=== PATIENT | male | born 1945 | race Caucasian/White ===

== ENCOUNTER 2023-08-09 20:05 | Emergency (ER) | payer OTHER, SELFPAY ==
[2023-08-09 20:16] VITALS: BP 161/85; PULSE 102; RESP 18; TEMP 36.4; O2SAT 95; BMI 27.5
--- NOTE | 2023-08-09 20:21 | ED.GENADULT ---
HPI - General Adult General Chief complaint: Nausea/Vomiting/Diarrhea Stated complaint: vomiting diarrhea Time Seen by Provider: 08/09/23 22:53 Source: patient Mode of arrival: ambulatory Limitations: no limitations History of Present Illness ED Provider: mei SUN narrative: Patient has been having vomiting and diarrhea for last 2 days unable to eat complaining of diffuse abdominal pain apparently had left over steak 2 days ago within few hours of eating get patient started having diarrhea and vomiting vomited about 4 -5 times a day and same times has watery stool no fever no chills no blood in his stool Related Data Previous Rx's ?Medication ?Instructions ?Recorded ondansetron 4 mg disintegrating 4 mg PO Q6-8H PRN nausea and 08/10/23 tablet vomiting #7 tabs Allergies Allergy/AdvReac Type Severity Reaction Status Date / Time No Known Allergies Allergy Verified 08/09/23 20:19 [facility] Social History Social History Smoked in Last 30 Days: No Use of substances other than those prescribed or required for medical reasons: No Advance Directives: No Advance Directives Information Provided: Yes Do you have a plan to hurt others: No Plan Physical Exam ED Vital Signs: Vital Signs - 24 hr 08/09/23 20:16 08/09/23 22:37 08/10/23 00:16 Temperature 97.5 F 96.8 F 97.6 F Pulse Rate 102 H 73 61 Respiratory Rate 18 16 14 Blood Pressure 161/85 H 170/70 H 145/63 H Pulse Oximetry 95 95 95 Oxygen Delivery Method Room Air Room Air Room Air BMI result Body Mass Index 27.5 Appearance: Alert. Oriented X3. No acute distress. Eyes: No pallor or icterus ENT: Pharynx normal. Oral Mucosa moist Neck: Normal inspection. Neck supple. CVS: Normal heart rate and rhythm. Pulses normal. Respiratory: No respiratory distress. Equal air entry bilateral, no wheezing/rales/rhonchi Abdomen: Soft and nontender. Bowel sounds are present, no mass palpable, no CVA tenderness Skin: Skin warm and dry. Normal skin color. Normal skin turgor. Extremities: No lower extremity edema. No calf tenderness Neuro: Oriented X 3. No motor deficit. Course Course Course Narrative: This is a rapid medical exam performed by Burak Vazquez NP: Additional HPI, ROS, PE not included below will be deferred to primary provider. Patient is a 78-year-old male presenting to emergency department with complaint of nausea, vomiting and diarrhea for the past 2 days, epigastric pain due to vomiting. Denies fevers, chills, body aches. Denies any known sick contacts. Plan: Labs, UA Medications Administered Discontinued Medications Generic Name Dose Route Start Last Admin Trade Name Reidq PRN Reason Stop Dose Admin Dicyclomine HCl 20 mg 08/09/23 23:09 08/10/23 00:06 Dicyclomine Hcl 10 Mg Capsule PO 08/09/23 23:10 20 mg ONCE ONE Administration Sodium Chloride 1,000 mls @ 999 mls/hr 08/09/23 23:09 08/10/23 00:06 Ns IV 08/10/23 00:09 999 mls/hr .Q1H1M ONE Administration Ondansetron HCl 4 mg 08/09/23 23:09 08/10/23 00:06 Ondansetron Hcl 4 Mg/2 Ml Vial IVPUSH 08/09/23 23:10 4 mg ONCE ONE Administration Medical Decision Making Medical Decision Making [facility] Narrative: Patient has acute gastroenteritis after eating leftover meat likely infection from Clostridium perfringens noticed to have elevated creatinine patient is not aware of abnormal kidney function the past likely CHLOÉ patient received IV fluids and taking p.o. fluids in the ER advised to continue taking p.o. fluids recheck his kidney functions in 2 days Differential Diagnosis Differential Diagnoses: The differential diagnosis associated with the presentation includes Food poisoning/gastroenteritis/enteritis Admission/Observation Consideration of admission/observation: Escalation of care including admission/observation considered Lab Data [facility] Lab Attestation statement: I reviewed the patient's lab results. 08/09/23 20:29 08/09/23 20:29 Labs: Lab Results 08/09/23 Range/Units 20:29 WBC 15.2 H (4.8-10.8) X10*3/uL RBC 5.58 (4.60-5.80) X10*6/uL Hgb 12.9 L (14.0-18.0) g/dl Hct 38.9 L (42.0-52.0) % MCV 69.7 L (80.0-98.0) fL MCH 23.1 L (27.0-33.0) pg MCHC 33.2 (31.0-36.0) g/dl RDW 18.2 H (11.0-16.0) % Plt Count 209 (160-400) X10*3/uL MPV Not Reportable Immature Gran % (Auto) 0.4 (0.0-0.4) % Neut % (Auto) 86.4 H (45-73) % Lymph % (Auto) 8.5 L (20-40) % Christian % (Auto) 4.0 (2-11) % Eos % (Auto) 0.5 (0-4) % Baso % (Auto) 0.2 (0-2) % Lymph # (Auto) 1.3 (1.2-4.9) X10*3/uL Christian # (Auto) 0.6 (0.1-1.2) X10*3/uL Eos # (Auto) 0.1 (0.0-0.4) X10*3/uL Baso # (Auto) 0.0 (0.0-0.2) X10*3/uL Abs Immat Gran (auto) 0.06 H (0.00-0.03) X10*3/uL Absolute Neuts (auto) 13.2 H (2.0-8.3) x10*3/uL Absolute Nucleated RBC 0.000 (0.0-0.012) X10*3/uL Nucleated RBC % (auto) 0.0 (0.0-0.2) /100WBC Sodium 138 (135-145) mmol/L Potassium 5.0 (3.3-5.1) mmol/L Chloride 106 (96-108) mmol/L Carbon Dioxide 20 L (22-29) mmol/L Anion Gap 17 (12-20) BUN 38 H (9-16) mg/dL Creatinine 2.04 H (0.5-1.4) mg/dL Estim Creat Clear Calc 28.4 Estimated GFR 32 Random Glucose 142 H (60-115) mg/dL Calcium 10.5 H (8.4-10.2) mg/dL Magnesium 1.6 (1.6-2.6) mg/dL Total Bilirubin 1.1 H (0.0-1.0) mg/dL AST 24 (5-37) U/L ALT 21 (0-40) U/L Alkaline Phosphatase 83 (39-117) U/L Total Protein 8.8 H (6.5-8.0) g/dL Albumin 4.9 (3.5-5.0) g/dL Amylase 57 (28-100) U/L Lipase 14 (8-78) U/L Discharge Plan Discharge Clinical Impression: Food poisoning, Dehydration Patient Disposition: Home, Self-Care Instructions: Food Poisoning (ED) Additional Instructions: Drink plenty of fluids Your kidney functions showed creatinine of 2.04 Follow with your PCP to recheck your kidney functions in 3 days Prescriptions: New ondansetron 4 mg tablet,disintegrating 4 mg PO Q6-8H PRN (Reason: nausea and vomiting) Qty: 7 0RF Print Language: Telugu
[2023-08-09 20:33] LABS: MANUAL DIFF FLAG NO
[2023-08-09 20:47] LABS: Alanine Aminotransferase 21 U/L (0-40); Albumin Level 4.9 g/dL (3.5-5.0); Alkaline Phosphatase 83 U/L (39-117); Amylase 57 U/L (28-100); Anion Gap 17 (12-20); Aspartate Amino Transferase 24 U/L (5-37); Bilirubin Total 1.1 mg/dL (0.0-1.0); Blood Urea Nitrogen 38 mg/dL (9-16); Calcium 10.5 mg/dL (8.4-10.2); Carbon Dioxide 20 mmol/L (22-29); Chloride 106 mmol/L (96-108); Creatinine Clr Calc Pharmacy 28.4; Estimated Glomerular Filt Rate 32; Glucose Random 142 mg/dL (60-115); Lipase 14 U/L (8-78); Magnesium 1.6 mg/dL (1.6-2.6); Sodium 138 mmol/L (135-145); Total Protein 8.8 g/dL (6.5-8.0)
[2023-08-09 21:09] LABS: Basophils Percent Auto 0.2 % (0-2); Eosinophils Absolute Auto 0.1 X10*3/uL (0.0-0.4); Eosinophils Percent Auto 0.5 % (0-4); Hematocrit 38.9 % (42.0-52.0); Hemoglobin 12.9 g/dl (14.0-18.0); Imm Gran Abs Auto 0.06 X10*3/uL (0.00-0.03); Imm Gran Pct Auto 0.4 % (0.0-0.4); Lymphocytes Absolute Auto 1.3 X10*3/uL (1.2-4.9); Lymphocytes Percent Auto 8.5 % (20-40); Mean Corpuscular HGB Conc 33.2 g/dl (31.0-36.0); Mean Corpuscular Hemoglobin 23.1 pg (27.0-33.0); Mean Corpuscular Volume 69.7 fL (80.0-98.0); Monocytes Absolute Auto 0.6 X10*3/uL (0.1-1.2); Neutrophils Absolute Auto 13.2 x10*3/uL (2.0-8.3); Neutrophils Percent Auto 86.4 % (45-73); Platelet Count 209 X10*3/uL (160-400); Red Blood Count 5.58 X10*6/uL (4.60-5.80); Red Cell Distribution Width 18.2 % (11.0-16.0); White Blood Count 15.2 X10*3/uL (4.8-10.8)
[2023-08-09 22:37] VITALS: BP 170/70; PULSE 73; RESP 16; TEMP 36; O2SAT 95
[2023-08-10] MEDS: Dicyclomine HCl 10 MG CAPSULE 20 MG PO (00:06)
[2023-08-10] MEDS: ondansetron HCL 4 MG/2 ML VIAL IVPUSH (00:06)
[2023-08-10] MEDS: 0.9 % Sodium Chloride 1,000 ML 999 ML IV (00:06)
[2023-08-10 00:16] VITALS: BP 145/63; PULSE 61; RESP 14; TEMP 36.4; O2SAT 95
--- NOTE | 2023-08-10 00:50 | PC.NURSE ---
pt from home, a&ox4, respirations even and unlabored. pt reports eating a pot roast x3 days ago and reports increasing nausea, vomiting and diarrhea. pt denies chest pain and sob. 20G placed in right ac, pt medicated per mar, fluid bolus adminstered.
[2023-08-10 01:28] VITALS: BP 145/63; PULSE 61; RESP 14; TEMP 36.4; O2SAT 95
== END 2023-08-10 01:48 | disposition home or self-care (01) ==
PROVIDERS: Registered Nurse Emergency; Emergency Provider Internal Medicine
DX: A05.9 Bacterial foodborne intoxication, unspecified (principal); E86.0 Dehydration; R19.7 Diarrhea, unspecified; R11.2 Nausea with vomiting, unspecified; R10.13 Epigastric pain
CPT/HCPCS: 36415; 80053; 82150; 83690; 83735; 85025; 96374; 99284; J2405

== ENCOUNTER 2024-05-12 12:48 | Emergency (ER) | payer OTHER, SELFPAY ==
--- NOTE | 2024-05-12 13:01 | ED.URI ---
HPI - URI/Sore Throat General Chief Complaint: Upper Respiratory Symptoms Stated Complaint: sore throat Time Seen by Provider: 05/12/24 13:52 Source: patient, RN notes reviewed and old records reviewed Mode of arrival: ambulatory History of Present Illness ED Provider: Mesha Li PA-C HPI Narrative: 79 yo M w/no sig pmhx presenting to the ED c/o sore/scratchy throat x last night. Admits to dry cough. denies fever, rhinorrhea, GUERRERO, difficulty/inability to swallow. sick contacts/travel Related Data Previous Rx's ?Medication ?Instructions ?Recorded ondansetron 4 mg disintegrating 4 mg PO Q6-8H PRN nausea and 08/10/23 tablet vomiting #7 tabs Allergies Allergy/AdvReac Type Severity Reaction Status Date / Time No Known Allergies Allergy Verified 05/12/24 13:05 Review of Systems Review of Systems: Yes all other systems are reviewed and are negative Constitutional: Constitutional: Reports as per [facility] Past Medical History Attestation statement: The following information was validated with the patient. Source: old records reviewed Social History Social History Advance Directives: No Advance Directives Information Provided: Yes Do you have a plan to hurt others: No Plan Physical Exam Vital Signs: Vital Signs: Last Vital Signs Temp 98 F 05/12/24 14:49 Pulse 72 05/12/24 14:49 Resp 18 05/12/24 14:49 BP 161/63 H 05/12/24 14:49 Pulse Ox 97 05/12/24 14:49 O2 Del Method Room Air 05/12/24 14:49 BMI result Body Mass Index 28.6 Const: General: cooperative, healthy appearing and no acute distress Orientation/consciousness: patient oriented x3 Limitations: no limitations HEENT: Head: Yes normal to inspection and Yes atraumatic Ears: hearing grossly normal bilaterally and external ears normal General nose exam: Normal external nose present Face and sinus: Yes normal facial exam Mouth: no drooling Throat: Yes tonsils normal, Yes uvula midline, No peritonsillar mass, Yes posterior oropharynx abnormal (erythema. no exudates), No uvula laterally displaced and No uvular edema Eyes: General: appearance normal, both eyes and all related structures EOM: EOMs intact bilaterally Neck: Neck: Yes normal visual inspection and Yes no meningeal signs Resp: Effort & Inspection: normal respiratory effort and no respiratory distress Auscultation: clear to auscultation bilaterally, no crackles, no rales, no rhonchi and no wheezes Cardio: Rate: regular rate Heart sounds: S1 normal heart sound present and S2 normal heart sound present Skin: Rashes: no rashes Wounds: no wounds Neuro: General: patient oriented x3, tone normal and no meningeal signs Cranial nerves: Yes CN's II-XII intact bilaterally Gait exam (Neuro): Normal gait present Extrem: General: Yes normal to inspection Course Course Course Narrative: This is a Rapid Medical Exam performed in triage by Mesha Li PA-C. Full HPI, ROS and PE to be performed by primary ED provider. 79 yo M presenting to the ED c/o sore/scratchy throat x last night. Admits to dry cough. denies fever, rhinorrhea, GUERRERO. denies sick contacts/travel PE: talking in complete sentences, nontoxic appearing, lungs CT,. posterior oropharyngeal erythema, no exudates, uvula midline Plan: SARs, Rapid strep 1408-- RSV positive. Rapid strep negative Results discussed with patient including worrisome signs and symptoms and strict return precautions, and when to return to the emergency department. They verbalized understanding and feel safe for discharge at this time. Medical Decision Making Medical Decision Making MDM Narrative: 79 yo M w/no sig pmhx presenting to the ED c/o sore/scratchy throat x last night. Admits to dry cough. on exam vital signs stable, NAD, nontoxic appearing, physical exam as noted above. Concern for viral illness vs pharyngitis. Rule out strep. No evidence of [employer] IN[employer]ATOR /retropharyngeal abscess. lower suspicion for pneumonia Plan: Viral testing, rapid strep Please refer to course for remaining clinical decision making, interpretation of labs/imaging results, and discussions with consultants and/or family members. Differential Diagnosis Differential Diagnoses: The differential diagnosis associated with the presentation includes As above Lab Data [facility] Lab Attestation statement: I reviewed the patient's lab results. Labs: Lab Results 05/12/24 Range/Units 13:15 Influenza Type A (PCR) NEGATIVE (Negative) Influenza Type B (PCR) NEGATIVE (Negative) RSV RNA Qual (PCR) POSITIVE A (Negative) SARS-CoV-2 RNA (RT-PCR) NEGATIVE (Negative) S. pyogenes GrpA MANNY Negative (Negative) External Record Review External record reviewed: Inpatient record, Office record, Outpatient record, Prior outpatient labs, Prior outpatient radiology, Primary care record and Outside ED record Tests considered The following testing was considered but not selected: As above Prescription Management I considered prescription management with: Pain Medication, Antiviral and Antibiotic Chronic Conditions Patient?s care impacted by: Other Social Determinants Patient?s care significantly limited by Social Determinants of Health including: Other Social Determinant of Health Discharge Plan Discharge Clinical Impression: Respiratory syncytial virus (RSV) Patient Disposition: Home, Self-Care Instructions: Respiratory Syncytial Virus (ED) Additional Instructions: You have RSV, this is a common virus No antibiotics are indicated at this time Make sure you are staying hydrated. Drink plenty of fluids. Rest Alternate Tylenol and Motrin at home as needed for body aches and fever Follow-up with your doctor. If symptoms persist or worsen return to the emergency department *If you are a child & not tolerating liquid or urinating for more than 6 hours, or fevers are uncontrolled with medications at home, return to the emergency department* Prescriptions: No Action ondansetron 4 mg tablet,disintegrating 4 mg PO Q6-8H PRN (Reason: nausea and vomiting) Qty: 7 0RF Referrals: Physician,Unknown J [Primary Care Provider] - 1 week Interventions: ED Discharge Assessment Last Done: 05/12/24 14:49 Discharge Date/Time: 05/12/24 14:50 Print Language: Danish
[2024-05-12 13:03] VITALS: BP 164/62; PULSE 70; RESP 18; TEMP 36.8; O2SAT 96; BMI 28.6
[2024-05-12 13:36] LABS: IDNOW Serial# 55D5AD1C; Strep A Nucleic Acid Negative (Negative)
[2024-05-12 14:03] LABS: Influenza A PCR NEGATIVE (Negative); Influenza B PCR NEGATIVE (Negative); Resp Syncy Virus RNA Qual PCR POSITIVE (Negative); SARS COV2 PCR INHOUSE NEGATIVE (Negative)
--- OUTSIDE RECORDS SUMMARY | 2024-05-12 14:15 | XMS_ITS | Encounter Summary ---
Author Name [facility] [place] [facility] Address [address] [place] [address] Care Team Providers Care Indirect Sales Exec Name Role Phone YOSEPH HERNANDEZ Primary Care Provide IGGY Faith Primary Care Provider Unavail able Insurance Providers: All historical and current Section Date Range: From patient's date of to the date document was created. This section includes the names of all active insurance providers for the patient. Insurance Provider Type of Coverage Plan Name Start of Policy Coverage End of Policy Coverage Group Number Member ID Insurance Provider's Telephone Number Policy Kieta's Name Patient's Relationship to Policy Keita MEDICARE (WNR) MEDICARE (M) PART A Mar 10, 2009 PART A [id number] GIANLORETTA SEPH PATIENT MEDICARE (WNR) MEDICARE (M) PART A Mar 10, 2009 PART A [id number] GIANLORETTA SEPH PATIENT MEDICARE (WNR) MEDICARE (M) PART A Mar 10, 2009 PART A [id number] GIANLORETTA SEPH PATIENT MEDICARE (WNR) MEDICARE (M) PART A Mar 10, 2009 PART A [id number] [phone] GIANLORETTA SEPH PATIENT MEDICARE (WNR) MEDICARE (M) PART A Mar 10, 2009 PART A [id number] LORETTA SPRINGER PATIENT MEDICARE (WNR) MEDICARE (M) PART A Mar 10, 2009 PART A [id number] LORETTA SPRINGER PATIENT Selected Encounter This section includes the information on record at [place] for the Encounter. Date/Time Encounter Type Encounter Description Reason Pro vider Source Aug 15, 2023 11:30 AM Outpatient Encounter PRIMARY CARE/MEDICINE [facility] Encounter Template Text not used by [place] Plan of Treatment: Future Appointments (+ 6 months) and Future Tests (+/- 45 days) The Plan of Treatment section includes future care activities for the patient from all [place] treatmentfacilities. This section includes future appointments and future orders which are active, pending or scheduled. Future Appointments This section includes appointments that were scheduled to occur 6 months from the date of the Encounter, up to a maximum of 20 appointments. The data comes from all [facility]. Appointment Date/Time Appointment Type Appointme nt Facility Name Aug 26, 2023 09:30 AM [facility] Oct 26, 2023 09:30 AM AMBULATORY - NONE [facility] Jan 23, 2024 10:30 AM [facility] Feb 07, 2024 01:45 PM AMBULATORY - NONE [facility] Active, Pending, and Scheduled Orders This section includes a listing of several types of active, pending, and scheduled orders, including clinic medications orders, diagnostic test orders, procedure orders and consult orders; where the start date of the order is 45 days before the date of the Encounter or 45 days after the date of theEncounter. The data comes from all [facility]. Test Date/Time Test Type Test Details Facility Name Sep 06, 2023 12:00 AM Laboratory - Chemi stry Order CBC BLOOD (LAVENDER-BLOOD) [facility] Sep 06, 2023 12:00 AM Laboratory - Chemi stry Order BASIC METABOLIC PANEL BLOOD (LIGHT-GREEN PST) PLASMA [facility] Sep 06, 2023 12:00 AM Laboratory - Chemi stry Order DIFF COUNT (BLOOD) BLOOD (LAVENDER-BLOOD) [facility] Sep 06, 2023 12:00 AM Laboratory - Chemi stry Order HEPATIC FUNCTION PANEL BLOOD (LIGHT-GREEN PST) PLASMA [facility] Sep 06, 2023 12:00 AM Laboratory - Chemi stry Order LIPID PROFILE BLOOD (LIGHT-GREEN PST) PLASMA [facility] Sep 06, 2023 12:00 AM Laboratory - Chemi stry Order THYROID PROFILE BLOOD (LIGHT-GREEN PST) PLASMA [facility] Sep 06, 2023 12:00 AM Laboratory - Chemi stry Order PSA, FREE & TOT BLOOD (GOLD-SST) SERUM [facility] Sep 06, 2023 12:00 AM Laboratory - Chemi stry Order OCCULT BLOOD FITX1 SCREEN FOBT Sampling Bottle [facility] Sep 06, 2023 12:00 AM Laboratory - Chemi stry Order HEMOGLOBIN A1C BLOOD (LAVENDER-BLOOD) [facility] Sep 06, 2023 12:00 AM Laboratory - Chemi stry Order URINALYSIS URINE (RANDOM) [facility] Sep 06, 2023 12:00 AM Laboratory - Chemi stry Order MICROALBUMIN/CREATININ E PANEL URINE (RANDOM) [facility] Sep 06, 2023 12:00 AM Laboratory - Chemi stry Order FOLATE SERUM/PLASMA BLOOD (LIGHT-GREEN PST) PLASMA [facility] Sep 06, 2023 12:00 AM Laboratory - Chemi stry Order Vitamin B-12 BLOOD (LIGHT-GREEN PST) PLASMA [facility] Sep 06, 2023 12:00 AM Laboratory - Chemi stry Order VITAMIN D, 25-OH, TOTAL BLOOD (GOLD-SST) SERUM [facility] Lab Results: +/- 30 days of the encounter This section includes the Chemistry and Hematology Lab Results on record with [place] for the patient. Radiology Reports and Pathology Reports are provided separately, in subsequent sections. Lab Results This section contains the Chemistry/Hematology Results that were resulted 30 days before or 30 daysafter the date of the Encounter. Date/Time Source Result Type Result - Unit Interpretation Reference Range Comment Aug 26, 2023 10:08 AM [facility] MICROALBUMIN CREATININE RATIO PANEL [facility] Type: URINE No comment entered. Ordering Provider: YOSEPH POWERS Report Released Date/Time: Aug 26, 2023 10:05 AM Reporting Lab: [place] [facility] [address] [id number] Performing Lab: [address] [id number] MICROALBUMIN/C REATININE RATIO 39.0 mg/g H 0-29.9 MICROALBUMIN,Q UANTITATIVE 1.6 mg/dL RR UNAVAIL CREATININE URINE 41.04 mg/dL Aug 26, 2023 10:08 AM [facility] URINALYSIS Specimen Type: URINE Comment: If Glucose = >500 and Ketones are positive, please alert the Physician. Ordering Provider: YOSEPH POWERS Report Released Date/Time: Aug 26, 2023 10:05 AM Reporting Lab: [address] [id number] Performing Lab: [address] [address] UA COLOR Light-Yellow Yellow UA APPEARANCE Clear Clear UA GLUCOSE NEGATIVE mg/dL Negative UA KETONES NEGATIVE mg/dL Negative UA BLOOD NEGATIVE mg/dL Negative UA PROTEIN NEGATIVE mg/dL Negative UA NITRITE NEGATIVE mg/dL Negative UA BILIRUBIN NEGATIVE mg/dL Negative UA SPECIFIC GRAVITY 1.009 L 1.016-1.022 UA pH 6.0 5.0-9.0 UA UROBILINOGEN <2.0 mg/dL <2.0 UA LEUKOCYTE NEGATIVE Negative Encounter Notes: All associated encounter notes This section contains the clinical notes associated to the Encounter. Date/Time Encounter Note(s) Provider Source Aug 15, 2023 01:50 PM ADMINISTRATIVE NOT E: LOCAL TITLE: ADMINISTRATIVE NOTE STANDARD TITLE: ADMINISTRATIVE NOTE DATE OF NOTE: AUG 15, 2023@13:50 ENTRY DATE: AUG 15, 2023@13:50:10 AUTHOR: BREANNA MOSS EXP COSIGNER: URGENCY: STATUS: COMPLETED ADMINISTRATIVE NOTE Has ADDENDA [place] did not show up for nursing visit as sheduled. /zana/ BREANNA MOSS RN REGISTERED NURSE Signed: 08/15/2023 13:50 Receipt Acknowledged By: 08/15/2023 14:09 /yaneth LOVE 08/15/2023 ADDENDUM STATUS: COMPLETED entry writer sent a no show letter to . /yaneth LOVE Signed: 08/15/2023 14:08 BREANNA MOSSFIELD
--- OUTSIDE RECORDS SUMMARY | 2024-05-12 14:16 | XMS_ITS | Continuity of Care Document ---
Author Name [facility] Organization [facility] Care Team Providers Care Estate And Trust Tax Principal Name Role Phone [facility] Unavailable Unavailable Problems Combined list of problems from Department of Defense and Veterans Affairs facilities. It does not include entries that were removed or entered in error. Problem Status Onset Date Problem Type Date of Resolution Comments Source COVID-19 Active 10/07/19 22 Condition [facility] Actinic keratosis Active Condition [facility] Benign essential hypertension (SNOMED CT 3485157) Active Condition [facility] Chronic kidney disease stage 3 Active Condition [facility] Chronic Kidney Disease Stage 3A (SCT 332794779) Active Condition [facility] Chronic post-traumatic stress disorder Active Condition [facility] Erectile dysfunction Active Condition [facility] Exposure to Potentially Hazardous Substance (SCT 436183389206543) Active Condition [facility] Gastroesophageal reflux disease Active Condition [facility] GERD - Gastro-Esophageal Reflux Disease (SCT 769631180) Active Condition [place] Headache (SCT 79379068) Active Condition [facility] Herpes labialis Active Condition [facility] Hypertension Active Condition [facility] Lateral Epicondylitis (Tennis Elbow) (ICD-9-CM 726.32) [place] Low back pain Active Condition [facility] Low Back Pain (SCT 432820280) Active Condition [facility] Migraine Active Condition [facility] PTSD - Post-Traumatic Stress Disorder (SCT 14244021) Active Condition [facility] Renal mass Active Condition [facility] Thalassemia (SNOMED CT 04554348) Active Condition Oct 12, 2013 Entered By: MARLEN CHAVEZ Comment: colonoscopy reportedly normal 2007 [facility] Tinnitus Active Condition [facility] Erectile Dysfunction (SCT 856470117) Inactive Condition 06/02/2020 [facility] Low Back Pain * (ICD-9-CM 724.2) Inactive Condition 06/15/2017 [facility] Male erectile disorder Inactive Condition 06/15/2017 [facility] Migraine, unspecified, without mention of Intractable Migraine without mention o Inactive Condition 06/15/2017 [facility] Posttraumatic Stress Disorder Inactive Condition 06/15/2017 [facility] Vertigo Inactive Condition 01/19/2019 Sep 05, 2 014 Entered By: MARLEN CHAVEZ Comment: CT brain 09/20 chronic infarcts/micr ovascular changes [facility] Diagnosis: ICD-10-CM I10 Essential (primary) hypertension Active Diagnosis [place] Diagnosis: ICD-10-CM L57.0 Actinic keratosis Active Diagnosis [facility] Diagnosis: ICD-10-CM K03.6 Deposits [accretions] on teeth Active Diagnosis [facility] Diagnosis: ICD-10-CM B00.1 Herpesviral vesicular dermatitis Active Diagnosis [place] Diagnosis: ICD-10-CM Z23 Encounter for immunization Active Diagnosis [facility] Medications Combined list of outpatient medications from Department of Defense and Veterans Affairs facilities.Medications provided include 1) outpatient medications from the last 15 months, and 2) patient-reported medications. Medication Details Route Status Patient Instructions Prescription Expires Prescription Number Last Dispense Date Ordering Provider Order Date Order Qty Source ACETAMINOPH EN 325MG TAB TAKE TWO TABLETS BY MOUTH EVERY 6 HOURS NEEDED FOR PAIN ORAL ACTIVE 09/27/2024 [id number] YOSEHP GOMEZ 2023 200 [facility] IELD ACETAMINOPH EN 325MG TAB TAKE TWO TABLETS BY MOUTH 4 TIMES A DAY FOR BACKACHE ORAL DISCONT INUED 03/22/2024 [id number] IGGY KRAMER 2023 200 [facility] AMLODIPINE BESYLATE 2.5MG TAB TAKE THREE TABLETS BY MOUTH ONCE DAILY FOR BLOOD PRESSURE /HEART, DO NOT TAKE WITH GRAPEFRU IT JUICE ORAL ACTIVE 01/23/2025 [id number] 5 YOSEPH GOMEZ 2023 270 [place] AMLODIPINE BESYLATE 5MG TAB TAKE ONE TABLET BY MOUTH ONCE DAILY FOR BLOOD PRESSURE /HEART, DO NOT TAKE WITH GRAPEFRU IT JUICE ORAL DISCONT INUED (EDIT) 07/11/2024 [id number] 4 YOSEPH GOMEZ 2023 90 [facility] IELD AMLODIPINE BESYLATE 5MG TAB TAKE ONE TABLET BY MOUTH DAILY FOR BLOOD PRESSURE ORAL 03/22/2024 [id number] IGGY KRAMER 2023 90 [facility] LIDOCAINE 5% OINT,TOP APPLY SMALL AMOUNT EXTERNAL LY TWICE A DAY (ANESTHE TIC) TOPICA L 03/22/2024 [id number] 4 IGGY KRAMER 2023 35 [facility] [place] POTASSIUM 100MG TAB TAKE ONE TABLET BY MOUTH DAILY FOR BLOOD PRESSURE /HEART (REPLACE S VALSARTA N) ORAL 03/22/2024 [id number] 4 GIGY KRAMER 2023 90 [facility] MECLIZINE HCL 25MG TAB,CHEWABL E CHEW ONE TABLET BY MOUTH THREE TIMES PER DAY NEEDED FOR DIZZINES S ORAL 03/22/2024 [id number] 4 IGGY KRAMER [address] [place] [address] MULTIVITAMI NS W/MINERALS CAP/TAB TAKE ONE CAP/TAB BY MOUTH ONCE DAILY ORAL ACTIVE YOSEPH GOMEZ 2023 [facility] IELD NO KNOWN NON-VA MEDS MISCELLANEO US ACTIVE WAGNER CHAVEZ 2017 [facility] NO KNOWN NON-VA MEDS MISCELLANEO US ACTIVE WAGNER CHAVEZ 2015 [facility] NO KNOWN NON-VA MEDS MISCELLANEO US ACTIVE WAGNER CHAVEZ 2019 [facility] NO KNOWN NON-VA MEDS MISCELLANEO US ACTIVE IGGY KRAMER 2023 [facility] NO KNOWN NON-VA MEDS MISCELLANEO US ACTIVE WAGNER CHAVEZ 2020 [facility] OMEPRAZOLE 20MG CAP,EC TAKE ONE CAPSULE BY MOUTH EVERY MORNING 30 MINUTES BEFORE BREAKFAS T FOR GASTROES OPHAGEAL REFLUX DISEASE ORAL ACTIVE 07/11/2024 [id number] YOSEPH GOMEZ M 2023 90 [place] OMEPRAZOLE 20MG CAP,EC TAKE ONE CAPSULE BY MOUTH EVERY MORNING BEFORE EATING FOR STOMACH ACID ORAL 03/22/2024 [id number] 4 IGGY KRAMER 2023 90 [facility] POTASSIUM CHLORIDE 10MEQ TAB,SA TAKE ONE TABLET BY MOUTH THREE TIMES A WEEK FOR LOW POTASSIU M ORAL ACTIVE 01/23/2025 [id number] 4 YOSEPH GOMEZ M 2023 39 [place] POTASSIUM CHLORIDE 10MEQ TAB,SA TAKE ONE TABLET BY MOUTH ONCE DAILY FOR LOW POTASSIU M ORAL DISCONT INUED BY PROVIDE R 12/26/2023 [id number] YOSEPH GOMEZ M 2023 90 [place] POTASSIUM CHLORIDE 10MEQ TAB,SA TAKE ONE TABLET BY MOUTH DAILY WITH FULL GLASS OF WATER FOR LOW POTASSIU M ORAL DISCONT INUED 03/22/2024 [id number] 4 IGGY KRAMER 2023 90 [facility] VALACYCLOVI R HCL 1GM TAB TAKE TWO TABLETS BY MOUTH TWICE DAILY FOR INFECTIO N CAUSED BY A VIRUS ORAL ACTIVE 07/11/2024 [id number] 4 YOSEPH GOMEZ M 2023 4 [place] VALSARTAN 160MG TAB TAKE ONE TABLET BY MOUTH ONCE DAILY FOR HIGH BLOOD PRESSURE ORAL ACTIVE 01/08/2025 [id number] 5 YOSEPH GOMEZ M 2023 90 [place] VALSARTAN 160MG TAB TAKE ONE TABLET BY MOUTH ONCE DAILY FOR HIGH BLOOD PRESSURE ORAL DISCONT INUED 12/22/2023 [id number] JUNEMARYY P 2023 90 [facility] IELD VALSARTAN 160MG TAB TAKE ONE TABLET BY MOUTH ONCE DAILY FOR HIGH BLOOD PRESSURE ORAL DISCONT INUED 10/09/2023 [id number] YOSEPH GOMEZ 2023 90 [facility] IELD Allergies, Adverse Reactions, Alerts Combined list of allergies from Department of Defense and Veterans Affairs facilities. It does not include entries that were removed or entered in error. Substance Category Reaction Severity Reaction type Status Date Reported Comments Source FLUZONE Propensity to adverse reactions to drug (finding) Muscle pain active 01/12/2018 [facility] Immunizations Combined list of available immunizations from the Department of Defense and Veterans Affairs facilities. Immunization Series Date Given Administered By Site Reaction Lot Number CVX Code Drug General Accounting Manager Status Comments Source COVID-19 (MODERNA), MRNA, LNP-S, PF, 50 MCG/0.5 ML (AGES 12+ YEARS) 1 2023 THIAGO MATHIS RIGHT DELTO ID [id number] 312 complet ed [facility] ZOSTER RECOMBINANT 2 2022 IVAN ANDERSON RA LEFT DELTO ID [id number] 187 complet ed [facility] COVID-19 (MODERNA), MRNA, LNP-S, PF, 100 MCG/0.5ML DOSE OR 50 MCG/0.25ML DOSE 4 2021 207 complet ed MOD; [id number]; 2 [facility] ZOSTER RECOMBINANT 1 2021 187 complet ed [facility] COVID-19 (MODERNA), MRNA, LNP-S, PF, 100 MCG OR 50 MCG DOSE 3 2020 207 complet ed MOD; [id number]; 2 [facility] COVID-19 (MODERNA), MRNA, LNP-S, PF, 100 MCG/0.5 ML DOSE 2 2020 207 complet ed MOD; [id number]; 1 [facility] COVID-19 (MODERNA), MRNA, LNP-S, PF, 100 MCG/0.5 ML DOSE 1 2020 207 complet ed MOD; [id number]; 1 [facility] PNEUMOCOCCAL POLYSACCHARID E PPV23 2015 33 complet ed [facility] PNEUMOCOCCAL CONJUGATE PCV 13 2014 133 complet ed [facility] TD(ADULT) UNSPECIFIED FORMULATION 2014 139 complet ed [facility] FLU,3 YRS (HISTORICAL) 2010 88 complet ed Site: Left Deltoid [place] PNEUMOCOCCAL, UNSPECIFIED FORMULATION 2010 109 complet ed [place] Results Combined list of recent chemistry, hematology and other laboratory results from Department of Defense and Veterans Affairs, ranging from 15 months to all on record, depending upon the facility. Order Name Results Value Reference Range Date Interpretation Specimen Comments Source IRON & TIBC PANEL IRON BINDING CAPACITY [MASS/VOLU ME] IN SERUM OR PLASMA 293 ug/dL 204 - 475 01/22 Specimen Type: SERUM No comment entered. Ordering Provider: JEAN PAUL MITCHELL Report Released Date/Time: Jan 23, 2024 11:23 AM Reporting Lab: [facility] [facility] [address] [facility] [address] Performing Lab: [facility] [place] [facility] [address] [facility] [address] [place] IRON & TIBC PANEL IRON [MASS/VOLU ME] IN SERUM OR PLASMA 100 ug/dL 40 - 160 01/22 Specimen Type: SERUM No comment entered. Ordering Provider: JEAN PAUL MITCHELL Report Released Date/Time: Jan 23, 2024 11:23 AM Reporting Lab: [facility] [place] [facility] [address] [facility] [address] Performing Lab: [facility] [address] [facility] [address] [place] IRON & TIBC PANEL IRON/IRON BINDING CAPACITY.T OTAL [MASS RATIO] IN SERUM OR PLASMA 34.1 20.0 - 50.0 01/22 Specimen Type: SERUM No comment entered. Ordering Provider: JEAN PAUL MITCHELL Report Released Date/Time: Jan 23, 2024 11:23 AM Reporting Lab: [facility]TRN [facility] [address] [facility] [address] Performing Lab: [facility]ITALUSE[facility] [address] [facility] [address] [place] IRON & TIBC PANEL TRANSFERRI N [MASS/VOLU ME] IN SERUM OR PLASMA 222 mg/dL 200 - 360 01/22 Specimen Type: SERUM No comment entered. Ordering Provider: JEAN PAUL MITCHELL Report Released Date/Time: Jan 23, 2024 11:23 AM Reporting Lab: [facility] [address] [facility] [address] Performing Lab: [facility] [address] [address] [place] FERRITIN FERRITIN [MASS/VOLU ME] IN SERUM OR PLASMA 391 ng/mL 20 - 300 01/22 H Specimen Type: SERUM No comment entered. Ordering Provider: JEAN PAUL MITCHELL Report Released Date/Time: Jan 23, 2024 11:23 AM Reporting Lab: [facility] [address] [facility] [address] Performing Lab: [facility] [address] [address] [place] BASIC METABOLI C PANEL (non-fas ting) UREA NITROGEN [MASS/VOLU ME] IN SERUM OR PLASMA 30 mg/dL 7 - 25 01/18 H Specimen Type: SERUM No comment entered. Ordering Provider: JEAN PAUL MITCHELL Report Released Date/Time: Jan 18, 2024 03:04 PM Reporting Lab: [facility]ITAL[facility] INFIRMARYN [facility]ITALUSEP[facility] [address] [facility] [address] Performing Lab: [facility] [address] [address] [place] BASIC METABOLI C PANEL (non-fas ting) GLUCOSE [MASS/VOLU ME] IN SERUM OR PLASMA 87 mg/dL 65 - 100 01/18 Specimen Type: SERUM No comment entered. Ordering Provider: JEAN PAUL MITCHELL Report Released Date/Time: Jan 18, 2024 03:04 PM Reporting Lab: [facility] [place] [facility] [address] [facility] [address] Performing Lab: [facility]ITALUSETS [facility] [address] [facility] [address] [place] BASIC METABOLI C PANEL (non-fas ting) SODIUM [MOLES/VOL UME] IN SERUM OR PLASMA 139 mmol/L 135 - 145 01/18 Specimen Type: SERUM No comment entered. Ordering Provider: JEAN PAUL MITCHELL Report Released Date/Time: Jan 18, 2024 03:04 PM Reporting Lab: [facility]OSPITALUSETS [address] [address] Performing Lab: [facility]ITALUSETS [address] [address] [place] BASIC METABOLI C PANEL (non-fas ting) POTASSIUM [MOLES/VOL UME] IN SERUM OR PLASMA 4.3 mmol/L 3.5 - 5.0 01/18 Specimen Type: SERUM No comment entered. Ordering Provider: JEAN PAUL MITCHELL Report Released Date/Time: Jan 18, 2024 03:04 PM Reporting Lab: [facility]ITALUSETS [address] [address] Performing Lab: [facility]ITALUSETS [address] [address] [place] BASIC METABOLI C PANEL (non-fas ting) CHLORIDE [MOLES/VOL UME] IN SERUM OR PLASMA 109 mmol/L 100 - 110 01/18 Specimen Type: SERUM No comment entered. Ordering Provider: JEAN PAUL MITCHELL Report Released Date/Time: Jan 18, 2024 03:04 PM Reporting Lab: [facility]ITALUSETS [address] [address] Performing Lab: [facility]ITALUSETS [address] [address] [place] BASIC METABOLI C PANEL (non-fas ting) CARBON DIOXIDE, TOTAL [MOLES/VOL UME] IN SERUM OR PLASMA 24 meq/L 20 - 30 01/18 Specimen Type: SERUM No comment entered. Ordering Provider: JEAN PAUL MITCHELL Report Released Date/Time: Jan 18, 2024 03:04 PM Reporting Lab: [address] [address] Performing Lab: [address] [address] [place] BASIC METABOLI C PANEL (non-fas ting) CREATININE [MASS/VOLU ME] IN SERUM OR PLASMA 1.21 mg/dL 0.50 - 1.40 01/18 Specimen Type: SERUM No comment entered. Ordering Provider: JEAN PAUL MITCHELL Report Released Date/Time: Jan 18, 2024 03:04 PM Reporting Lab: [address] [address] Performing Lab: [address] [address] [place] BASIC METABOLI C PANEL (non-fas ting) GLOMERULAR FILTRATION RATE/1.73 SQ M.PREDICTE D [VOLUME RATE/AREA] IN SERUM, PLASMA OR BLOOD BY CREATININE -BASED FORMULA (CKD-EPI 2020) 61 mL/min 60 01/18 Specimen Type: SERUM No comment entered. Ordering Provider: JEAN PAUL MITCHELL Report Released Date/Time: Jan 18, 2024 03:04 PM Reporting Lab: [address] [address] Performing Lab: [address] [address] [place] LIVER FUNCTION PROTEIN [MASS/VOLU ME] IN SERUM OR PLASMA 7.1 g/dL 6.0 - 8.3 01/18 Specimen Type: SERUM No comment entered. Ordering Provider: JEAN PAUL MITCHELL Report Released Date/Time: Jan 18, 2024 03:04 PM Reporting Lab: [facility]ITALRE[facility]ENTERTRN [address] [address] Performing Lab: [facility]PITALRHALE INFIRMARYN [address] [address] [place] LIVER FUNCTION ALBUMIN [MASS/VOLU ME] IN SERUM OR PLASMA 3.9 g/dL 3.5 - 5.0 01/18 Specimen Type: SERUM No comment entered. Ordering Provider: JEAN PAUL MITCHELL Report Released Date/Time: Jan 18, 2024 03:04 PM Reporting Lab: [facility]ITAL[facility] INFIRMARYN [address] [address] Performing Lab: [facility] [address] [address] [facility]IVER FUNCTION ALKALINE PHOSPHATAS E [ENZYMATIC ACTIVITY/V OLUME] IN SERUM OR PLASMA 74 U/L 40 - 150 01/18 Specimen Type: SERUM No comment entered. Ordering Provider: JEAN PAUL MITCHELL Report Released Date/Time: Jan 18, 2024 03:04 PM Reporting Lab: [facility]ITAL[facility] INFIRMARYN [address] [address] Performing Lab: [facility]ITAL[facility] INFIRMARYN [address] [address] [facility] LIVER FUNCTION ASPARTATE AMINOTRANS FERASE [ENZYMATIC ACTIVITY/V OLUME] IN SERUM OR PLASMA 21 U/L 5 - 34 01/18 Specimen Type: SERUM No comment entered. Ordering Provider: JEAN PAUL MITCHELL Report Released Date/Time: Jan 18, 2024 03:04 PM Reporting Lab: [facility]ITALRE[facility] CENTERTRN [address] [address] Performing Lab: [facility]ITAL[facility] INFIRMARYN [address] [address] [facility] LIVER FUNCTION ALANINE AMINOTRANS FERASE [ENZYMATIC ACTIVITY/V OLUME] IN SERUM OR PLASMA 13 U/L 01/18 Specimen Type: SERUM No comment entered. Ordering Provider: JEAN PAUL MITCHELL Report Released Date/Time: Jan 18, 2024 03:04 PM Reporting Lab: [address] [address] Performing Lab: [address] [address] [place] LIVER FUNCTION BILIRUBIN. TOTAL [MASS/VOLU ME] IN SERUM OR PLASMA 0.7 mg/dL 0.2 - 1.2 01/18 Specimen Type: SERUM No comment entered. Ordering Provider: JEAN PAUL MITCHELL Report Released Date/Time: Jan 18, 2024 03:04 PM Reporting Lab: [address] [address] Performing Lab: [address] [address] [place] HEMOGLOB IN A1C PANEL HEMOGLOBIN A1C/HEMOGL OBIN.TOTAL IN BLOOD BY HPLC 5.0 4.0 - 5.6 01/18 Specimen Type: BLOOD Comment: Values obtained from A1C measurement s can vary. For atypical A1C assays, a reported value of 7.0 could actually be between 6.72 and 7.28 if measured by a reference method. A reported value of 9.0 could actually be between 8.73 and 9.27. Ref: http://www. ngsp.org/[place] Pdata.asp Ordering Provider: JEAN PAUL MITCHELL Report Released Date/Time: Jan 18, 2024 03:04 PM Reporting Lab: [address] [address] Performing Lab: [address] [address] [place] TSH THYROTROPI N [UNITS/VOL UME] IN SERUM OR PLASMA 2.69 u[IU]/mL 0.35 - 5.00 01/18 Specimen Type: SERUM No comment entered. Ordering Provider: JEAN PAUL MITCHELL Report Released Date/Time: Jan 18, 2024 03:04 PM Reporting Lab: [facility]ITAL[facility] [place] [facility] [address] [facility] [address] Performing Lab: [facility]OSPITALRL TRN [facility]ITALUSETS [facility] [address] [facility] [address] [place] CBC AND DIFF (AUTO) LEUKOCYTES [#/VOLUME] IN BLOOD BY AUTOMATED COUNT 5.15 10*3/uL 4.50 - 11.00 01/18 Specimen Type: BLOOD No comment entered. Ordering Provider: JEAN PAUL MITCHELL Report Released Date/Time: Jan 18, 2024 03:04 PM Reporting Lab: [facility]OSPITALRL TRN [facility]OSPITALUSE[address] [address] Performing Lab: [facility]ITALRE[facility] CENTERTRN [facility] HOSPITALUSE[address] [address] [place] CBC AND DIFF (AUTO) ERYTHROCYT ES [#/VOLUME] IN BLOOD BY AUTOMATED COUNT 4.02 10*6/uL 4.23 - 5.66 01/18 L Specimen Type: BLOOD No comment entered. Ordering Provider: JEAN PAUL MITCHELL Report Released Date/Time: Jan 18, 2024 03:04 PM Reporting Lab: [facility]OSPITALRL TRN [facility] HOSPITALUSETS [address] [address] Performing Lab: [facility]OSPITALRL TRN [facility]OSPITALUSE[address] [address] [place] CBC AND DIFF (AUTO) HEMOGLOBIN [MASS/VOLU ME] IN BLOOD 9.7 g/dL 12.8 - 17 01/18 L Specimen Type: BLOOD No comment entered. Ordering Provider: JEAN PAUL MITCHELL Report Released Date/Time: Jan 18, 2024 03:04 PM Reporting Lab: [facility]OSPITALRL TRN [facility] HOSPITALUSETS [address] [address] Performing Lab: [facility]ITALRHALE INFIRMARYN [facility]OSPITALUSE[address] [address] [place] CBC AND DIFF (AUTO) HEMATOCRIT [VOLUME FRACTION] OF BLOOD BY AUTOMATED COUNT 28.6 39.2 - 50.4 01/18 L Specimen Type: BLOOD No comment entered. Ordering Provider: JEAN PAUL MITCHELL Report Released Date/Time: Jan 18, 2024 03:04 PM Reporting Lab: [facility]ITALRL TRN [facility]ITALUSE[address] [address] Performing Lab: [facility]ITALRL TRN [facility]ITALUSE[address] [address] [place] CBC AND DIFF (AUTO) MCV [ENTITIC VOLUME] BY AUTOMATED COUNT 71.1 fL 82 - 99 01/18 L Specimen Type: BLOOD No comment entered. Ordering Provider: JEAN PAUL MITCHELL Report Released Date/Time: Jan 18, 2024 03:04 PM Reporting Lab: [facility]ITALRL TRN [address] [address] Performing Lab: [facility]ITALRH[facility] INFIRMARYN [address] [address] [place] CBC AND DIFF (AUTO) MCHC [MASS/VOLU ME] BY AUTOMATED COUNT 33.9 g/dL 30.8 - 35.1 01/18 Specimen Type: BLOOD No comment entered. Ordering Provider: JEAN PAUL MITCHELL Report Released Date/Time: Jan 18, 2024 03:04 PM Reporting Lab: [facility]ITALRL TRN [address] [address] Performing Lab: [facility]ITALRL TRN [facility]ITALUSE[address] [address] [place] CBC AND DIFF (AUTO) PLATELETS [#/VOLUME] IN BLOOD BY AUTOMATED COUNT 171 10*3/uL 140 - 360 01/18 Specimen Type: BLOOD No comment entered. Ordering Provider: JEAN PAUL MITCHELL Report Released Date/Time: Jan 18, 2024 03:04 PM Reporting Lab: [facility]ITALRL WSTRN [facility]ITALUSE[address] [address] Performing Lab: [facility]ITALRL [facility] [address] [address] [place] CBC AND DIFF (AUTO) ERYTHROCYT E DISTRIBUTI ON WIDTH [RATIO] BY AUTOMATED COUNT 16.9 12.0 - 16.0 01/18 H Specimen Type: BLOOD No comment entered. Ordering Provider: JEAN PAUL MITCHELL Report Released Date/Time: Jan 18, 2024 03:04 PM Reporting Lab: [facility]RL [facility] [place] [address] [address] Performing Lab: [place] [facility] [place] [address] [address] [place] CBC AND DIFF (AUTO) MONOCYTES [#/VOLUME] IN BLOOD BY AUTOMATED COUNT 0.53 10*3/uL 0.30 - 1.10 01/18 Specimen Type: BLOOD No comment entered. Ordering Provider: JEAN PAUL MITCHELL Report Released Date/Time: Jan 18, 2024 03:04 PM Reporting Lab: [facility] [address] Performing Lab: [facility] [place] [address] [address] [place] CBC AND DIFF (AUTO) MCH [ENTITIC MASS] BY AUTOMATED COUNT 24.1 pg 26.2 - 32.6 01/18 L Specimen Type: BLOOD No comment entered. Ordering Provider: JEAN PAUL MITCHELL Report Released Date/Time: Jan 18, 2024 03:04 PM Reporting Lab: [facility] [place] [address] [address] Performing Lab: [facility] [place] [address] [address] [place] CBC AND DIFF (AUTO) NEUTROPHIL S/100 LEUKOCYTES IN BLOOD BY AUTOMATED COUNT 61.0 43.7 - 75.8 01/18 Specimen Type: BLOOD No comment entered. Ordering Provider: JEAN PAUL MITCHELL Report Released Date/Time: Jan 18, 2024 03:04 PM Reporting Lab: [facility] [place] [address] [address] Performing Lab: [facility] [place] [address] [address] [place] CBC AND DIFF (AUTO) LYMPHOCYTE S/100 LEUKOCYTES IN BLOOD BY AUTOMATED COUNT 25.4 14.0 - 42.3 01/18 Specimen Type: BLOOD No comment entered. Ordering Provider: JEAN PAUL MITCHELL Report Released Date/Time: Jan 18, 2024 03:04 PM Reporting Lab: [facility] [place] [address] [address] Performing Lab: [facility] [place] [address] [address] [place] CBC AND DIFF (AUTO) MONOCYTES/ 100 LEUKOCYTES IN BLOOD BY AUTOMATED COUNT 10.3 5.1 - 13.7 01/18 Specimen Type: BLOOD No comment entered. Ordering Provider: JEAN PAUL MITCHELL Report Released Date/Time: Jan 18, 2024 03:04 PM Reporting Lab: [facility] [place] [address] [address] Performing Lab: [facility] [place] [address] [address] [place] CBC AND DIFF (AUTO) EOSINOPHIL S/100 LEUKOCYTES IN BLOOD BY AUTOMATED COUNT 2.3 0.4 - 6.8 01/18 Specimen Type: BLOOD No comment entered. Ordering Provider: JEAN PAUL MITCHELL Report Released Date/Time: Jan 18, 2024 03:04 PM Reporting Lab: [facility] [place] [address] [address] Performing Lab: [facility] [place] [address] [address] [place] CBC AND DIFF (AUTO) BASOPHILS/ 100 LEUKOCYTES IN BLOOD BY AUTOMATED COUNT 0.6 0.1 - 2.0 01/18 Specimen Type: BLOOD No comment entered. Ordering Provider: JEAN PAUL MITCHELL Report Released Date/Time: Jan 18, 2024 03:04 PM Reporting Lab: [facility] [place] [address] [address] Performing Lab: [facility] [address] [facility] [address] [place] CBC AND DIFF (AUTO) NEUTROPHIL S [#/VOLUME] IN BLOOD BY AUTOMATED COUNT 3.14 10*3/uL 2.20 - 7.60 01/18 Specimen Type: BLOOD No comment entered. Ordering Provider: JEAN PAUL MITCHELL Report Released Date/Time: Jan 18, 2024 03:04 PM Reporting Lab: [facility] [place] [facility] [address] [facility] [address] Performing Lab: [facility]ITALUSE[address] [address] [place] CBC AND DIFF (AUTO) LYMPHOCYTE S [#/VOLUME] IN BLOOD BY AUTOMATED COUNT 1.31 10*3/uL 1.00 - 3.20 01/18 Specimen Type: BLOOD No comment entered. Ordering Provider: JEAN PAUL MITCHELL Report Released Date/Time: Jan 18, 2024 03:04 PM Reporting Lab: [facility] [address] [address] Performing Lab: [facility] [address] [address] [place] CBC AND DIFF (AUTO) EOSINOPHIL S [#/VOLUME] IN BLOOD BY AUTOMATED COUNT 0.12 10*3/uL 0.03 - 0.44 01/18 Specimen Type: BLOOD No comment entered. Ordering Provider: JEAN PAUL MITCHELL Report Released Date/Time: Jan 18, 2024 03:04 PM Reporting Lab: [place] [facility] [address] [address] Performing Lab: [facility]ITAL[facility] [address] [place] CBC AND DIFF (AUTO) BASOPHILS [#/VOLUME] IN BLOOD BY AUTOMATED COUNT 0.03 10*3/uL 0.01 - 0.13 01/18 Specimen Type: BLOOD No comment entered. Ordering Provider: JEAN PAUL MITCHELL Report Released Date/Time: Jan 18, 2024 03:04 PM Reporting Lab: [facility]ENTERTRN [address] [address] Performing Lab: [facility] [address] [address] [place] CBC AND DIFF (AUTO) IMMATURE GRANULOCYT ES/100 LEUKOCYTES IN BLOOD BY AUTOMATED COUNT 0.4 0.0 - 0.7 01/18 Specimen Type: BLOOD No comment entered. Ordering Provider: JEAN PAUL MITCHELL Report Released Date/Time: Jan 18, 2024 03:04 PM Reporting Lab: [facility]ENTERTRN [address] [address] Performing Lab: [facility]MARYN [address] [address] [place] CBC AND DIFF (AUTO) IMMATURE GRANULOCYT ES [#/VOLUME] IN BLOOD 0.02 10*3/uL 0.00 - 0.06 01/18 Specimen Type: BLOOD No comment entered. Ordering Provider: JEAN PAUL MITCHELL Report Released Date/Time: Jan 18, 2024 03:04 PM Reporting Lab: [facility] [address] Performing Lab: [facility]N [address] [address] [place] CBC AND DIFF (AUTO) NRBC % 0.0 0.0 - 0.0 01/18 Specimen Type: BLOOD No comment entered. Ordering Provider: JEAN PAUL MITCHELL Report Released Date/Time: Jan 18, 2024 03:04 PM Reporting Lab: [facility] TRN [address] [address] Performing Lab: [facility]MARYN [facility] [address] [place] CBC AND DIFF (AUTO) NRBC, ABS 0.00 10*3/uL 0.00 - 0.00 01/18 Specimen Type: BLOOD No comment entered. Ordering Provider: JEAN PAUL MITCHELL Report Released Date/Time: Jan 18, 2024 03:04 PM Reporting Lab: [facility] [address] [facility] [address] Performing Lab: [facility]ITAL[facility]ETS [facility] [address] [facility] [address] [place] MICROALB UMIN CREATINI NE RATIO PANEL MICROALBUM IN/CREATIN INE [MASS RATIO] IN URINE 39.0 mg/g 0 - 29.9 08/25 H Specimen Type: URINE No comment entered. Ordering Provider: JEAN PAUL MITCHELL Report Released Date/Time: Aug 26, 2023 10:05 AM Reporting Lab: [facility]ITAL[facility] [address] [address] Performing Lab: [place] [facility]ITALUSETS [facility] [address] [facility] [address] [place] MICROALB UMIN CREATINI NE RATIO PANEL MICROALBUM IN [MASS/VOLU ME] IN URINE 1.6 mg/dL 08/25 Specimen Type: URINE No comment entered. Ordering Provider: JEAN PAUL MITCHELL Report Released Date/Time: Aug 26, 2023 10:05 AM Reporting Lab: [facility]ITAL[facility]ETS [address] [address] Performing Lab: [facility]ITAL[facility]ETS [facility] [address] [facility] [address] [place] MICROALB UMIN CREATINI NE RATIO PANEL CREATININE [MASS/VOLU ME] IN URINE 41.04 mg/dL 08/25 Specimen Type: URINE No comment entered. Ordering Provider: JEAN PAUL MITCHELL Report Released Date/Time: Aug 26, 2023 10:05 AM Reporting Lab: [facility]ITAL[facility]ETS [facility] [address] [facility] [address] Performing Lab: [facility]ITALUSETS [facility] [address] [facility] [address] [place] URINALYS IS COLOR OF URINE Light-Ye llow 08/25 Specimen Type: URINE Comment: If Glucose = >500 and Ketones are positive, please alert the Physician. Ordering Provider: JEAN PAUL MITCHELL Report Released Date/Time: Aug 26, 2023 10:05 AM Reporting Lab: [facility]ITAL[facility] [address] Performing Lab: [facility]ITALUSETS [address] [address] [place] URINALYS IS APPEARANCE OF URINE Clear 08/25 Specimen Type: URINE Comment: If Glucose = >500 and Ketones are positive, please alert the Physician. Ordering Provider: JEAN PAUL MITCHELL Report Released Date/Time: Aug 26, 2023 10:05 AM Reporting Lab: [facility]ITAL[facility] [address] Performing Lab: [facility]ITAL[facility] [address] [address] [place] URINALYS IS GLUCOSE [MASS/VOLU ME] IN URINE NEGATIVE mg/dL 08/25 Specimen Type: URINE Comment: If Glucose = >500 and Ketones are positive, please alert the Physician. Ordering Provider: JEAN PAUL MITCHELL Report Released Date/Time: Aug 26, 2023 10:05 AM Reporting Lab: [facility]ITAL[facility] [address] Performing Lab: [facility]ITAL[facility]ETS [address] [address] [place] URINALYS IS KETONES [MASS/VOLU ME] IN URINE BY TEST STRIP NEGATIVE mg/dL 08/25 Specimen Type: URINE Comment: If Glucose = >500 and Ketones are positive, please alert the Physician. Ordering Provider: JEAN PAUL MITCHELL Report Released Date/Time: Aug 26, 2023 10:05 AM Reporting Lab: [facility] [address] Performing Lab: [facility] [address] [facility] [address] [place] URINALYS IS ERYTHROCYT ES [PRESENCE] IN URINE SEDIMENT BY LIGHT MICROSCOPY NEGATIVE mg/dL 08/25 Specimen Type: URINE Comment: If Glucose = >500 and Ketones are positive, please alert the Physician. Ordering Provider: JEAN PAUL MITCHELL Report Released Date/Time: Aug 26, 2023 10:05 AM Reporting Lab: [address] [address] Performing Lab: [address] [address] [place]INALYS IS PROTEIN [MASS/VOLU ME] IN URINE BY TEST STRIP NEGATIVE mg/dL 08/25 Specimen Type: URINE Comment: If Glucose = >500 and Ketones are positive, please alert the Physician. Ordering Provider: JEAN PAUL MITCHELL Report Released Date/Time: Aug 26, 2023 10:05 AM Reporting Lab: [address] [address] Performing Lab: [address] [address] [place] URINALYS IS NITRITE [PRESENCE] IN URINE NEGATIVE mg/dL 08/25 Specimen Type: URINE Comment: If Glucose = >500 and Ketones are positive, please alert the Physician. Ordering Provider: JEAN PAUL MITCHELL Report Released Date/Time: Aug 26, 2023 10:05 AM Reporting Lab: [address] [address] Performing Lab: [address] [address] [place] URINALYS IS BILIRUBIN. TOTAL [PRESENCE] IN URINE NEGATIVE mg/dL 08/25 Specimen Type: URINE Comment: If Glucose = >500 and Ketones are positive, please alert the Physician. Ordering Provider: JEAN PAUL MITCHELL Report Released Date/Time: Aug 26, 2023 10:05 AM Reporting Lab: [address] [address] Performing Lab: [address] [address] [place] URINALYS IS SPECIFIC GRAVITY OF URINE BY REFRACTOME TRY 1.009 1.016 - 1.022 08/25 L Specimen Type: URINE Comment: If Glucose = >500 and Ketones are positive, please alert the Physician. Ordering Provider: JEAN PAUL MITCHELL Report Released Date/Time: Aug 26, 2023 10:05 AM Reporting Lab: [address] [address] Performing Lab: [address] [address] [place] URINALYS IS PH OF URINE BY TEST STRIP 6.0 5.0 - 9.0 08/25 Specimen Type: URINE Comment: If Glucose = >500 and Ketones are positive, please alert the Physician. Ordering Provider: JEAN PAUL MITCHELL Report Released Date/Time: Aug 26, 2023 10:05 AM Reporting Lab: [address] [address] Performing Lab: [address] [address] [place] URINALYS IS UROBILINOG EN [MASS/VOLU ME] IN URINE BY TEST STRIP <2.0mg/d L <2.0 - 2.0 08/25 Specimen Type: URINE Comment: If Glucose = >500 and Ketones are positive, please alert the Physician. Ordering Provider: JEAN PAUL MITCHELL Report Released Date/Time: Aug 26, 2023 10:05 AM Reporting Lab: [address] [address] Performing Lab: [facility] [address] [address] [place] URINALYS IS LEUKOCYTE ESTERASE [PRESENCE] IN URINE BY TEST STRIP NEGATIVE 08/25 Specimen Type: URINE Comment: If Glucose = >500 and Ketones are positive, please alert the Physician. Ordering Provider: JEAN PAUL MITCHELL Report Released Date/Time: Aug 26, 2023 10:05 AM Reporting Lab: [address] [address] Performing Lab: [address] [address] [facility] INTACT PARATHYRIN .INTACT [MASS/VOLU ME] IN SERUM OR PLASMA 68.9 pg/mL 07/10 H Specimen Type: SERUM No comment entered. Ordering Provider: JEAN PAUL MITCHELL Report Released Date/Time: Jul 11, 2023 12:53 PM Reporting Lab: [address] [address] Performing Lab: [address] [address] [facility] Vital Signs Combined list of inpatient and outpatient Vital Signs from Department of Defense and Veterans Affairs, ranging from 12 months to all on record, depending upon the facility. Vital Sign Value Date Comments Source SYSTOLIC BLOOD PRESSURE 139 05/02/2024 11:00:09 [place] DIASTOLIC BLOOD PRESSURE 65 05/02/2024 11:00:09 [place] PULSE OXIMETRY 100 05/02/2024 11:00:09 [place] PULSE 51 05/02/2024 11:00:09 [place] RESPIRATION 16 05/02/2024 11:00:09 KAREN BENSON SYSTOLIC BLOOD PRESSURE 160 01/23/2024 11:00:57 [place] DIASTOLIC BLOOD PRESSURE 62 01/23/2024 11:00:57 [place] PULSE OXIMETRY 99 01/23/2024 11:00:57 [place] WEIGHT 182.4 01/23/2024 11:00:57 EHSAN[place] NO[place] BMI 28 kg/m2 01/23/2024 11:00:57 [place] TEMPERATURE 98 01/23/2024 11:00:57 [place] PULSE 58 01/23/2024 [facility]00[facility] SYSTOLIC BLOOD PRESSURE 136 08/26/2023 10:10:00 [place] DIASTOLIC BLOOD PRESSURE 61 08/26/2023 10:10:00 [place] PULSE 57 08/26/2023 10:10:[address] SYSTOLIC BLOOD PRESSURE 198 07/11/2023 11:26:22 [place] DIASTOLIC BLOOD PRESSURE 75 07/11/2023 11:26:22 [place] PULSE OXIMETRY 98 07/11/2023 11:26:22 [place] WEIGHT 185.8 07/11/2023 11:26:22 [place] BMI 28 kg/m2 07/11/2023 11:26:22 [place] TEMPERATURE 97.2 07/11/2023 11:26:22 [place] PULSE 64 07/11/2023 11:26:22 [place] Encounters Combined list of: 1) Encounters from Department of Veterans Affairs facilities going backup to the last 18 months, not all [place] inpatient encounters are included; 2) Encounters from the Department of [facility] facilities going backup to 280 months. Location Location Details Encounter Type Encounter Number Reason For Visit Attending Provider ADM Date DC Date Status Disposition Source [facility] Outpatient Encounter [id number] 02/17 [facility] Outpatient Encounter [id number] DEEPAK PATINO S 02/17 [facility] OFF/OP EST JUNE X REQ PHY/QHP [id number] Diagnos is: ICD-10- CM Z23 Encount er for immuniz attee JERAMIE MATHIS A 02/17 [facility] OFFICE O/P EST LOW 20 MIN [id number] Diagnos is: ICD-10- CM I10 Essenti al (primar y) hyperte IGGY Rubio 03/22 [facility] [place] [facility] Outpatient Encounter [id number] 05/09 [facility] En[facility] [id number] 07/10 [facility] [place] OFF[place] 40 MIN [id number] Diagnos is: ICD-10- CM 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 NADBHARGAVI-Kristie CASTILLO,OG IRISFILIBERTO M 07/10 [place] [facility] Encounter [id number] 07/10 [facility] En[facility] [id number] 07/13 [facility] [place] Outpatient Encounter [id number] 08/14 [place] [facility] Encounter [id number] 08/15 [facility] [place] Encounter [id number] 08/15 [facility] [place] [facility] Outpatient Encounter [id number] FALTA,VELV ET A 08/18 [facility] [place] Out[facility] Encounter [id number] 08/21 [facility] [place] OFF/OP EST JUNE X REQ PHY/QHP [id number] Diagnos is: ICD-10- CM I10 Essenti al (primar y) hyperte nsion BREANNA BANERJEE 08/25 [place] [facility] En[facility] [id number] 09/08 [facility] En[facility] [id number] 09/20 [facility] Encounter [id number] 09/21 [facility] En[facility] [id number] 10/24 [facility] COMPREHENS VE ORAL EVALUATION [id number] Diagnos is: ICD-10- CM K03.6 Deposit s [accret ions] on teeth DEVON ENGLAND 10/25 [facility] En[facility] [id number] 1.01/02 [facility] Encounter [id number] 1.01/17 [facility] [place] [facility] OFFICE O/P EST MOD 30 MIN [id number] Diagnos is: ICD-10- CM I10 Essenti al (primar y) hyperte nsion NADMISTI ONEILL 01[place]22 [place] [facility] Out[facility] Encounter [id number] 02/05 [facility] CASE [facility] LIT [id number] Diagnos is: ICD-10- CM K03.6 Deposit s [accret ions] on teeth Rowan MARQUEZZTREMAINE 02/06 [facility] [place] [facility] [place] [facility] OFFICE O/P NEW MOD 45 MIN [id number] Diagnos is: ICD-10- CM L57.0 Actinic keratos is ZAC KENT 03/08 [facility] [place] [facility] [place] OFF/OP EST JUNE X REQ PHY/QHP [id number] Diagnos is: ICD-10- CM I10 Essenti al (primar y) hyperte nsion JUAN UBREANNA 05/02 [facility] [place] Social History Combined list of available smoking, tobacco, and other social history from Department of Defense and Veterans Affairs facilities. Social History Type Response Date Comment Sourc e Tobacco smoking status ARIS [facility]-TOBACCO NEVER USED 07[facility]11[facility]2023 [facility] [place] [facility] History of tobacco use VA-TOBACCO NEVER USED 03/22/2023 [facility] History of tobacco use ORYX ADMIT TOBACCO SCREEN NO(-) 02/21/2022 [facility] History of tobacco use [place]-TOBACCO QUIT 15 YRS OR MORE 05/28/2021 [facility] History of tobacco use VA-TOBACCO NEVER USED 05/30/2020 [facility] History of tobacco use VA-TOBACCO NEVER USED 01/19/2019 [facility] History of tobacco use VA-TOBACCO NEVER USED 06/22/2017 [facility] History of tobacco use NON-TOBACCO USER 06/22/2017 [facility] History of tobacco use NON-TOBACCO USER 09/22/2016 [facility] History of tobacco use NON-TOBACCO USER 01/12/2016 [facility] History of tobacco use NON-TOBACCO USER 07/09/2015 [facility] History of tobacco use NON-TOBACCO USER 01/07/2015 [facility] History of tobacco use NON-TOBACCO USER 10/15/2014 [facility] History of tobacco use NON-TOBACCO USER 07/04/2014 [facility] History of tobacco use NON-TOBACCO USER 04/11/2014 [facility] History of tobacco use NON-TOBACCO USER 10/12/2013 [facility] History of tobacco use NON-TOBACCO USER 11/23/2010 [facility] History of tobacco use LIFETIME NON-TOBACCO USER 03/15/2006 [facility] Plan of Care List of future care activities from Department of [facility] Affairs facilities. Additional future care activities may be listed in the Assessment and Plan section. Date/Time Care Activity Care Activity Detail Facili ty 05/24/2024 AMBULATORY - REHAB MEDICINE AMBULATORY - REHAB MEDICINE [facility]
--- OUTSIDE RECORDS SUMMARY | 2024-05-12 14:16 | XMS_ITS | Encounter Summary ---
Author Name [facility] Address [address] [place] [address] Care Team Providers Care Russian Language Instructor Name Role Phone YOSEPH HERNANDEZ Primary Care [...] Member ID Insurance Provider's Telephone Number Policy Keita's Name Patient's Relationship to Policy Keita MEDICARE (WNR) MEDICARE (M) PART A Mar 10, 2009 PART A [id number] [place] SPRINGER SEPH PATIENT MEDICARE (WNR) MEDICARE (M) PART A Mar 10, 2009 PART A [id number] [id number] [place] SPRING[place] SEPH PATIENT MEDICARE (WNR) MEDICARE (M) PART A Mar 10, 2009 PART A [id number] [place] SE[place] PATIENT MEDICARE (WNR) MEDICARE (M) PART A Mar 10, 2009 PART A [id number] [place] SPRING[place] SEPH PATIENT MEDICARE (WNR) MEDICARE (M) PART A Mar 10, 2009 PART A [id number] [place] SPRINGER PATIENT MEDICARE (WNR) MEDICARE (M) PART A Mar 10, 2009 PART A [id number] [place] SPRINGER PATIENT Selected Encounter This section includes the information on record at [place] for the Encounter. Date/Time Encounter Type Encounter Description Reason Pro vider Source Jul 14, 2023 02:09 PM Outpatient Encounter ADMIN PAT ACTIVTIES (MASNONCT) IHE Encounter Template Text not used by [place] Plan of Treatment: Future Appointments (+ 6 months) and Future Tests (+/- 45 days) The Plan of Treatment section includes future care activities for the patient from all [place] treatmentfacilities. This section includes future appointments and future orders which are active, pending or scheduled. Future Appointments This section includes appointments that were scheduled to occur 6 months from the date of the Encounter, up to a maximum of 20 appointments. The data comes from all [place] treatment facilities. Appointment Date/Time Appointment Type Appointme nt Facility Name Aug 15, 2023 11:30 AM AMBULATORY - MEDICINE [facility] Aug 26, 2023 09:30 AM [facility] Oct 26, 2023 09:30 AM AMBULATORY - NONE [facility] Lab Results: +/- 30 days of the encounter This section includes the Chemistry and Hematology Lab Results on record with [place] for the patient. Radiology Reports and Pathology Reports are provided separately, in subsequent sections. Lab Results This section contains the Chemistry/Hematology Results that were resulted 30 days before or 30 daysafter the date of the Encounter. Date/Time Source Result Type Result - Unit Interpretation Reference Range Comment Jul 11, 2023 01:19 PM [facility] PTH INTACT Specimen Type: SERUM No comment entered. Ordering Provider: YOSEPH POWERS Report Released Date/Time: Jul 11, 2023 12:53 PM Reporting Lab: [facility] [address] [address] Performing Lab: [facility] [address] [address] PTH INTACT 68.9 pg/mL H 10-65 Jul 11, 2023 01:19 PM [facility] VITAMIN B12 Specimen Type: SERUM No comment entered. Ordering Provider: YOSEPH POWERS Report Released Date/Time: Jul 11, 2023 12:53 PM Reporting Lab: [facility] [address] [address] Performing [facility]: [facility] [address] [address] VITAMIN B12 713 pg/mL 200-900 Jul 11, 2023 01:19 PM [facility] VITAMIN D (25-OH) Specimen Type: SERUM No comment entered. Ordering Provider: YOSEPH POWERS Report Released Date/Time: Jul 11, 2023 12:53 PM Reporting Lab: [facility] [address] [address] Performing Lab: [facility] [address] [address] VITAMIN D (25-OH) 58 ng/mL H 20-50 Jul 11, 2023 01:19 PM [facility] MAGNESIUM Specimen Type: SERUM No comment entered. Ordering Provider: YOSEPH POWERS Report Released Date/Time: Jul 11, 2023 12:53 PM Reporting Lab: [facility] [address] Performing Lab: [facility] [address] [address] MAGNESIUM 1.6 mg/dL 1.6-2.6 Jul 11, 2023 01:19 PM [facility] FERRITIN Specimen Type: SERUM No comment entered. Ordering Provider: YOSEPH POWERS Report Released Date/Time: Jul 11, 2023 12:53 PM Reporting Lab: [facility] [address] Performing Lab: [facility] [address] FERRITIN 607 ng/mL H 20-300 Jul 11, 2023 01:19 PM [facility] CALCIUM Specimen Type: SERUM No comment entered. Ordering Provider: YOSEPH POWERS Report Released Date/Time: Jul 11, 2023 12:53 PM Reporting Lab: [address] [address] Performing Lab: [address] [address] CALCIUM 9.4 mg/dL 8.5-10.2 Jul 11, 2023 01:19 PM [facility] LIPID PANEL FASTING Specimen Type: SERUM No comment entered. Ordering Provider: YOSEPH POWERS Report Released Date/Time: Jul 11, 2023 12:53 PM Reporting Lab: [address] [address] Performing Lab: [address] [address] CHOLESTEROL 145 mg/dL TRIGLYCERIDE 112 mg/dL 0-150 LDL calculated 83 mg/dL 0-129 CHOL/HDL 3.6 HDL CHOLESTEROL 40 mg/dL 40-60 Jul 11, 2023 01:19 PM [facility] BASIC METABOLIC PANEL (fasting) Specime n Type: SERUM No comment entered. Ordering Provider: YOSEPH POWERS Report Released Date/Time: Jul 11, 2023 12:53 PM Reporting Lab: [address] [address] Performing Lab: [address] [address] UREA NITROGEN 29 mg/dL H 7-25 GLUCOSE 90 mg/dL 65-100 SODIUM 139 mmol/L 135-145 POTASSIUM 4.3 mmol/L 3.5-5.0 CHLORIDE 108 mmol/L 100-110 CO2 21 meq/L 20-30 CREATININE, Serum 1.26 mg/dL 0.50-1.40 eGFR(CKD-EPI 2020) 58 mL/min L >60 Jul 11, 2023 01:19 PM [facility] LIVER FUNCTION Specimen Type: SERUM No comment entered. Ordering Provider: YOSEPH POWERS Report Released Date/Time: Jul 11, 2023 12:53 PM Reporting Lab: [address] [address] Performing Lab: [address] [address] PROTEIN,TOTAL 7.5 g/dL 6.0-8.3 ALBUMIN 4.5 g/dL 3.5-5.0 ALKALINE PHOSPHATASE 76 U/L 40-150 AST 26 U/L 5-34 ALT 21 U/L BILIRUBIN, TOTAL 1.1 mg/dL 0.2-1.2 Jul 11, 2023 01:19 PM [facility] HEMOGLOBIN A1C PANEL Specimen Type: BLOOD Comment: Values obtained from A1C measurements can vary. For atypical A1C assays, a reported value of 7.0 could actually be between 6.72 and 7.28 if measured by a reference method. A reported value of 9.0 could actually be between 8.73 and 9.27. Ref: http://www.ng sp.org/CAPdat a.asp Ordering Provider: YOSEPH OPWERS Report Released Date/Time: Jul 11, 2023 12:53 PM Reporting Lab: [address] [address] Performing Lab: [address] [address] HEMOGLOBIN A1C 5.0 4.0-5.6 Jul 11, 2023 01:19 PM [facility] TSH Specimen Type: SERUM No comment entered. Ordering Provider: YOSEPH POWERS Report Released Date/Time: Jul 11, 2023 12:53 PM Reporting Lab: [address] [address] Performing Lab: [address] [address] TSH 1.56 u[IU]/mL 0.35-5.00 Jul 11, 2023 01:19 PM [facility] CBC AND DIFF (AUTO) Specimen Type: BLOOD No comment entered. Ordering Provider: YOSEPH POWERS Report Released Date/Time: Jul 11, 2023 12:53 PM Reporting Lab: [facility] [address] [address] Performing Lab: [address] [address] WBC 5.36 10*3/uL 4.50-11.00 RBC 4.73 10*6/uL 4.23-5.66 HGB 10.8 g/dL L 12.8-17 HCT 33.1 L 39.2-50.4 MCV 70.0 fL L 82-99 MCHC 32.6 g/dL 30.8-35.1 PLT 168 10*3/uL 140-360 RDW-CV 16.8 H 12.0-16.0 Scurry, Abs 0.45 10*3/uL 0.30-1.10 MCH 22.8 pg L 26.2-32.6 Neut % 62.7 43.7-75.8 Lymph % 26.1 14.0-42.3 Scurry % 8.4 5.1-13.7 Eos % 1.7 0.4-6.8 Baso % 0.7 0.1-2.0 Neut, Abs 3.36 10*3/uL 2.20-7.60 Lymph, Abs 1.40 10*3/uL 1.00-3.20 Eos, Abs 0.09 10*3/uL 0.03-0.44 Baso, Abs 0.04 10*3/uL 0.01-0.13 Immature Gran % 0.4 0.0-0.7 Immature Gran, Abs 0.02 10*3/uL 0.00-0.06 Jul 11, 2023 01:19 PM [facility] HIV 1&2 Ag/Ab SCREEN Specimen Type: SERUM No comment entered. Ordering Provider: YOSEPH POWERS Report Released Date/Time: Jul 11, 2023 01:08 PM Reporting Lab: [address] [address] Performing Lab: [address] [address] HIV 1&2 Ag/Ab SCREEN NON-REACTIVE Nonreactive Social History: Smoking Status (Most current) and Tobacco Use (All prior to encounter date) This section includes the most current, and the historical, smoking and tobacco- related health factors from the [place] facility where the Encounter took place. Current Smoking Status This section includes the most current smoking, or tobacco-related health factor, from the [place] facility where the Encounter took place. Date/Time Current Smoking Status Comment Blake [email or web address] Jul 11, 2023 11:28 AM VA-TOBACCO NEVER USED [facility] Tobacco Use History This section includes a history of the smoking, or tobacco-related health factors, that were collected on or before the date of the Encounter. The data comes from the [place] facility where the Encounter took place. Date/Time Smoking Status/Tobacco Use Comment [facility] Mar 15, 2006 01:09 PM LIFETIME NON-TOBACCO USER [facility] Encounter Notes: All associated encounter notes This section contains the clinical notes associated to the Encounter. Date/Time Encounter Note(s) Provider Source Jul 14, 2023 02:09 PM NURSING NOTE: LOCAL TITLE: [facility]/TRAVELING COORDINATOR STANDARD TITLE: NURSING NOTE DATE OF NOTE: JUL 14, 2023@14:09 ENTRY DATE: JUL 14, 2023@14:09:22 AUTHOR: LONNIE HINDS EXP COSIGNER: URGENCY: STATUS: COMPLETED Clinical record review completed by [facility]. Confirmed that has permanently relocated and has established Primary Care @ [facility] on 07/11/2023. Requested future PACT/lab appointments be cancelled at prior [facility]. Actionable alert for permanent relocation approved at this time in [facility] Web. /es/ LONNIE HINDS Registered Nurse Signed: 07/14/2023 14:09 LONNIE HINDS [facility]
[2024-05-12 14:49] VITALS: BP 161/63; PULSE 72; RESP 18; TEMP 36.6; O2SAT 97
== END 2024-05-12 14:50 | disposition home or self-care (01) ==
LOC: HO.ED 14:13
PROVIDERS: Physician Assistant; Emergency Provider Emergency Medicine Emergency Medical Services
DX: J02.8 Acute pharyngitis due to other specified organisms (principal); R05.9 Cough, unspecified; Z03.818 Encounter for observation for suspected exposure to other biological agents ruled out
CPT/HCPCS: 0241U; 87651; 99282; 99283